=== PATIENT | male | born 1950 | race Caucasian/White ===

== ENCOUNTER 2017-04-09 09:02 | Day surgery (SDC) | payer OTHER ==
--- NOTE | 2017-04-09 09:48 | CP.SDSHP ---
Same Day Surgery H & P - History Proposed Procedure: colonoscopy - Previous Medical/Surgical History Cardiac: Hypertension Endocrine/Metabolic: Diabetes - Allergies Allergies: Allergies No Known Allergies Allergy (Verified 04/09/17 09:28) - Physical Exam Vital Signs: Vital Signs 04/09/17 09:25 Temperature 97.3 F L Pulse Rate 76 Respiratory 19 Rate Blood Pressure 132/52 L O2 Sat by Pulse 100 Oximetry - Date & Time Date: 04/09/17 Time: 09:48 Short Stay Discharge - Short Stay Discharge Admitting Diagnosis/Reason for Visit: ENCOUNTER FOR SCREENING FOR MALIGNANT NEOPLASM OF Disposition: HOME/ ROUTINE
[2017-04-09] MEDS ORDERED: Midazolam 2 MG/2 ML VIAL ONE (10:22)
[2017-04-09] MEDS ORDERED: Propofol 10 mg/ml Inj (20 ML) ONE (10:22)
[2017-04-09 13:06] VITALS: TEMP 97
[2017-04-09 13:12] VITALS: BP 140/74; PULSE 78; RESP 18; O2SAT 99
== END 2017-04-09 12:05 | disposition home or self-care (01) ==
LOC: C.ENDO 09:02
PROVIDERS: ATTEND Colon & Rectal Surgery
DX: Z12.11 Encounter for screening for malignant neoplasm of colon (principal); D12.3 Benign neoplasm of transverse colon; D12.4 Benign neoplasm of descending colon; I10 Essential (primary) hypertension; E11.9 Type 2 diabetes mellitus without complications; Z87.19 Personal history of other diseases of the digestive system; N40.0 Benign prostatic hyperplasia without lower urinary tract symptoms
CPT/HCPCS: 45385; 82948; 88305; J2250; J2704